=== PATIENT | male | born 1940 | race Caucasian/White ===

== ENCOUNTER 2018-01-02 13:27 | Emergency (ER) | payer MEDICARE, OTHER ==
[2018-01-02] MEDS ORDERED: cephALEXin 250 MG CAPSULE PO STA (15:03)
[2018-01-02] MEDS ORDERED: TETANUS/DIPHTHERIA/PERTUSSIS 0.5 ML SYRINGE IM ONE (15:03)
--- NOTE | 2018-01-02 15:05 | ED Physician Documentation ---
PD HPI LOWER EXT INJURY - Stated complaint Stated Complaint: NAIL VS RT FOOT - Chief complaint Chief Complaint: Wound - History obtained from History obtained from: Patient - History of Present Illness PD HPI LOW EXT INJURY LOCATION: Right, Foot Type of injury: Puncture wound Where injury occurred: Home Timing - onset: Today - Additional information Additional information: The patient is a 77-year-old male who stepped on a nail while tearing down an old shack today, penetrating the sole of his right foot through his sneaker. He denies any other injuries. The date of his last tetanus booster is unknown. He is status post right total knee arthroplasty and status post left total hip replacement. He does not currently have a local physician, having recently moved here from [place], [place]. Review of Systems Constitutional: denies: Fever Skin: reports: Other (puncture wound) Musculoskeletal: reports: Other (left foot puncture wound with nail) Neurologic: denies: Focal weakness, Numbness PD PAST MEDICAL HISTORY - Past Medical History Endocrine/Autoimmune: None - Present Medications Home Medications: Ambulatory Orders Medication Instructions Recorded Confirmed Cephalexin [Keflex] 500 mg PO TID #15 capsule 01/02/18 hydroCHLOROthiazide 01/02/18 [Hydrochlorothiazide] - Allergies Allergies/Adverse Reactions: Allergies Allergy/AdvReac Type Severity Reaction Status Date / Time No Known Drug Allergies Allergy Verified 01/02/18 15:14 PD ED PE NORMAL - Vitals Vital signs reviewed: Yes (Borderline hypertension) - General General: Alert and oriented X 3, Well developed/nourished - HEENT HEENT: Atraumatic - Respiratory Respiratory: No respiratory distress - Derm Derm: No rash - Extremities Extremities: No calf tenderness / cord, Other (Puncture wound to the plantar aspect of the right midfoot. There is no surrounding erythema. Distal neurovascular is intact.) Results - Vitals Vitals: Vital Signs - 24 hr 01/02/18 01/02/18 13:33 15:58 Temperature 36.6 C 36.8 C Heart Rate 68 64 Respiratory 16 16 Rate Blood Pressure 145/81 H 140/87 H O2 Saturation 96 99 Oxygen O2 Source Room air PD MEDICAL DECISION MAKING - ED course Complexity details: considered differential, d/w patient ED course: The patient's presentation is significant for plantar puncture wound in the right foot with a nail. His examination reveals puncture wound without complications. Considerations in this patient include total knee arthroplasty and total hip replacement. Treatment in the emergency department included administration of tetanus booster , and cephalexin 500 mg orally. The wound was cleaned and the superficial skin was unroofed allowing irrigation. He is being discharged with prescription for a short course of cephalexin. I discussed with him symptomatic treatment, as well as potentially worrisome signs or symptoms that should prompt reevaluation in the emergency department. - Sepsis Event Vital Signs: Vital Signs - 24 hr 01/02/18 01/02/18 13:33 15:58 Temperature 36.6 C 36.8 C Heart Rate 68 64 Respiratory 16 16 Rate Blood Pressure 145/81 H 140/87 H O2 Saturation 96 99 Oxygen O2 Source Room air Departure - Departure Disposition: 01 Home, Self Care Clinical Impression: Puncture wound of plantar aspect of foot Qualifiers: Encounter type: initial encounter Laterality: right Qualified Code(s): S91.331A - Puncture wound without foreign body, right foot, initial encounter Condition: Stable Instructions: ED Wound Puncture General Prescriptions: Cephalexin [Keflex] 500 mg PO TID #15 capsule Comments: Keep your right foot elevated as much the time as possible. Keep the wound clean. Take cephalexin 3 times daily as prescribed. Return to the emergency department if you develop any sign of infection, or otherwise worsening symptoms. Discharge Date/Time: 01/02/18 15:58
[2018-01-02 16:00] VITALS: BP 140/87
== END 2018-01-02 15:58 | disposition home or self-care (01) ==
LOC: ED 13:27
DX: S91.331A Puncture wound without foreign body, right foot, initial encounter (principal); W45.0XXA Nail entering through skin, initial encounter; Y92.009 Unspecified place in unspecified non-institutional (private) residence as the place of occurrence of the external cause; Z23 Encounter for immunization
CPT/HCPCS: 90471; 90715; 99283; A9270

== ENCOUNTER 2019-04-08 10:23 | Outpatient (CLI) | payer MEDICARE, OTHER ==
--- NOTE | 2019-04-09 09:32 | XRAY Report ---
Reason: CLAVICAL Procedure Date: 04/08/2019 Accession Number: [id number] / [id number] Procedure: XRS - Clavicle LT CPT Code: FULL RESULT: EXAM: LEFT CLAVICLE RADIOGRAPHY EXAM DATE: 04/08/2019 10:32 AM. CLINICAL HISTORY: Clavicle. Left clavicle is now protruding much more than the right at the left sternal clavicular joint. No known injury. Mild discomfort. COMPARISON: None. TECHNIQUE: 2 views. FINDINGS: Bones: Normal. No fracture or bone lesion. Joints: Mild to moderate acromioclavicular and mild glenohumeral joint degenerative disease. At the AC joint is normally aligned. The sternoclavicular joint is grossly normal. No definite malalignment although the right sternoclavicular joint is not well-seen and if comparison of the sternoclavicular joints alignment is indicated, bilateral sternoclavicular joint radiography would be recommended. Soft Tissues: Normal. No soft tissue swelling. IMPRESSION: 1. No acute abnormality is demonstrated. 2. 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 RADIA
== END 2019-04-08 10:24 | disposition home or self-care (01) ==
LOC: DI.S 10:23
PROVIDERS: ATTEND Nurse Practitioner Family
DX: M19.012 Primary osteoarthritis, left shoulder (principal)

== ENCOUNTER 2019-04-16 07:54 | Outpatient (CLI) | payer MEDICARE, OTHER ==
--- NOTE | 2019-04-16 18:20 | XRAY Report ---
Reason: STERNOCLAVICULAR JOINTS, SHOULDER BILAT Procedure Date: 04/16/2019 Accession Number: [id number] / [id number] Procedure: XRS - SC Joints CPT Code: FULL RESULT: EXAM: BILATERAL STERNOCLAVICULAR JOINT RADIOGRAPHY EXAM DATE: 04/16/2019 08:16 AM. CLINICAL HISTORY: Pain COMPARISON: None. TECHNIQUE: Frontal, oblique and lateral views of the sternoclavicular joints, 4 views total FINDINGS: No apparent misalignment. No evidence of sclerosis or hyperostotic change. No large lytic lesion identified at the medial clavicles or upper sternum. IMPRESSION: No significant abnormality identified at the sternoclavicular joints within limitations of plain radiography. RADIA
== END 2019-04-16 07:55 | disposition home or self-care (01) ==
LOC: DI.S 07:54
PROVIDERS: ATTEND Nurse Practitioner Family
DX: M25.511 Pain in right shoulder (principal); M25.512 Pain in left shoulder
CPT/HCPCS: 71130

== ENCOUNTER 2019-07-09 13:14 | Outpatient (CLI) | payer MEDICARE, OTHER ==
--- NOTE | 2019-07-12 09:52 | CT Report ---
Reason: AQUIRED DEFORMITY OF CLAVICLE Procedure Date: 07/09/2019 Accession Number: [id number] / [id number] Procedure: CT - CHEST WO CPT Code: Final Report FULL RESULT: EXAM: CT CHEST EXAM DATE: 07/09/2019 01:32 PM. CLINICAL HISTORY: AQUIRED DEFORMITY OF CLAVICLE. COMPARISONS: None. TECHNIQUE: Routine helical CT imaging was performed through the chest. IV contrast: None. Reconstructions: Coronal and sagittal. In accordance with CT protocol optimization, one or more of the following dose reduction techniques were utilized for this exam: automated exposure control, adjustment of mA and/or KV based on patient size, or use of iterative reconstructive technique. FINDINGS: Lungs/Pleura: Calcifying granuloma in the left lung base measuring up to 8 mm likely of no clinical significance. No focal consolidation, pleural effusion or suspicious pulmonary nodules or masses. Moderate emphysematous changes throughout both lungs. Mediastinum: Normal. No adenopathy or masses. The heart and great vessels are normal. Bones: Bony fusion of the left first rib and manubrium. No abnormality of the left clavicular head identified. No mass or lymphadenopathy. Visualized Abdomen: Multiple coarse and punctate calcifications in the spleen consistent with prior granulomatous infection. Other: None. IMPRESSION: There is bony fusion of the left first rib and manubrium. No abnormality noted of the left clavicular head. No masses. No lymphadenopathy. RADIA
== END 2019-07-09 13:15 | disposition home or self-care (01) ==
LOC: DI 13:14
PROVIDERS: ATTEND Registered Nurse
DX: M95.8 Other specified acquired deformities of musculoskeletal system (principal); Z87.891 Personal history of nicotine dependence
CPT/HCPCS: 71250

== ENCOUNTER 2020-03-01 13:57 | Outpatient (CLI) | payer MEDICARE, OTHER ==
--- NOTE | 2020-03-01 14:30 | XRAY Report ---
PROCEDURE: Lumbar Spine 2 View INDICATIONS: ANESTHESIA OF SKIN TECHNIQUE: 3 views of the lumbar spine were acquired. COMPARISON: None. FINDINGS: No fracture. Diffuse endplate sclerosis and spurring. Moderate narrowing of the L5-S1 disc space. Mil d narrowing of the remaining lumbar disc spaces. Trace retrolisthesis of L2 on L3. Facet arthropathy Soft tissues: Overlying bowel gas pattern is normal. No suspicious soft tissue calcifications. IMPRESSION: Multilevel lumbar spondylosis and facet arthropathy most pronounced at L5-S1. Reviewed by: Pedro Cano MD on 03/01/2020 2:29 PM PDT Approved by: Pedro Cano MD on 03/01/2020 2:29 PM PDT Station ID: [id number]
== END 2020-03-01 13:58 | disposition home or self-care (01) ==
LOC: DI.S 13:57
PROVIDERS: ATTEND Registered Nurse
DX: M47.817 Spondylosis without myelopathy or radiculopathy, lumbosacral region (principal); M47.816 Spondylosis without myelopathy or radiculopathy, lumbar region; M43.16 Spondylolisthesis, lumbar region
CPT/HCPCS: 72100

== ENCOUNTER 2020-03-09 10:46 | Outpatient (CLI) | payer MEDICARE, OTHER ==
--- NOTE | 2020-03-09 13:20 | XRAY Report ---
PROCEDURE: Cervical Spine 2 View INDICATIONS: ANESTHESIA OF SKIN TECHNIQUE: 2 view(s) of the cervical spine were acquired. COMPARISON: None. FINDINGS: Bones: No fractures or dislocations to the C7-T1 level. The lateral masses of C1 appear intact on t he odontoid view. No suspicious bony lesions. There is trace retrolisthesis of C3 on C4, C4 on C5, C5 on C6. Small partially bridging anterior osteophytes are present at C4-5, C5-6. Moderate disc spac e narrowing is present at C3-4 through C6-7. Multilevel uncovertebral arthropathy is present. Soft tissues: No prevertebral soft tissue swelling. IMPRESSION: Multilevel degenerative changes as above. As clinically indicated, MRI may be obtained f or additional evaluation. Reviewed by: Emely Robins MD on 03/09/2020 1:18 PM PDT Approved by: Emely Robins MD on 03/09/2020 1:18 PM PDT Station ID: [id number]
== END 2020-03-09 10:47 | disposition home or self-care (01) ==
LOC: DI.S 10:46
PROVIDERS: ATTEND Registered Nurse
DX: R20.0 Anesthesia of skin (principal); M50.31 Other cervical disc degeneration, high cervical region; M48.02 Spinal stenosis, cervical region
CPT/HCPCS: 72040

== ENCOUNTER 2021-07-16 13:27 | Outpatient (CLI) | payer MEDICARE, OTHER ==
--- NOTE | 2021-07-16 14:16 | XRAY Report ---
PROCEDURE: Hip w/Pelvis 2-3V RT INDICATIONS: PAIN IN RIGHT HIP JOINT TECHNIQUE: AP pelvis with lateral view(s) of the right hip(s). COMPARISON: Lumbar spine radiographs 03/01/2020. FINDINGS: Bones: No fractures or dislocations. No avascular necrosis of the right femoral head. There is right hip joint space narrowing and acetabular roof sclerosis. Question CAM deformity. The visualized port ions of the left hip arthroplasty are unremarkable. Mild heterotopic calcifications. Pelvic ring appe ars intact. No suspicious bony lesions. Soft tissues: The visualized bowel gas pattern is normal. No suspicious soft tissue calcifications. Vascular calcifications. Clips in the region of the right scrotum. IMPRESSION: Severe right hip DJD. Left hip arthroplasty. Reviewed by: Edson Suggs MD on 07/16/2021 2:15 PM PST Approved by: Edson Suggs MD on 07/16/2021 2:15 PM PST Station ID: [id number]
[2021-07-16 20:02] LABS: ALBUMIN 4.5 g/dL (3.2-5.5); ALBUMIN/GLOBULIN RATIO 1.7 (1.0-2.2); ALKALINE PHOSPHATASE 61 IU/L (42-121); ALT ALANINE AMINOTRANSFERASE 26 IU/L (10-60); AST ASPARTATE AMINOTRANSFERASE 25 IU/L (10-42); BILIRUBIN,TOTAL 0.7 mg/dL (0.2-1.0); BUN - BLOOD UREA NITROGEN 21 mg/dL (6-20); CALCIUM 8.9 mg/dL (8.5-10.3); CARBON DIOXIDE - CO2 31 mmol/L (21-32); CHLORIDE 98 mmol/L (101-111); CHOL/HDL RATIO 4.5 (<5.0); CHOLESTEROL 197 mg/dL; GFR - MDRD 72 (>89); GLUCOSE 127 mg/dL (70-100); HDL CHOLESTEROL 44 mg/dL; LDL CHOLESTEROL,CALCULATED 119 mg/dL; LDL/HDL RATIO 2.7 (<3.6); POTASSIUM 3.9 mmol/L (3.5-5.0); SODIUM 136 mmol/L (135-145); TOTAL PROTEIN 7.1 g/dL (6.7-8.2); TRIGLYCERIDES 168 mg/dL; VLDL CHOLESTEROL 34 mg/dL
== END 2021-07-16 13:28 | disposition home or self-care (01) ==
LOC: DI.S 13:27
PROVIDERS: ATTEND Nurse Practitioner Family
DX: M16.11 Unilateral primary osteoarthritis, right hip (principal); Z13.1 Encounter for screening for diabetes mellitus; E78.5 Hyperlipidemia, unspecified; Z96.642 Presence of left artificial hip joint
CPT/HCPCS: 36415; 80053; 80061; 83721

== ENCOUNTER 2021-10-20 09:01 | Outpatient (CLI) | payer MEDICARE, OTHER ==
[2021-10-20] MEDS ORDERED: ALBUTEROL 1 PUFF INH STA (12:24)
== END 2021-10-20 09:02 | disposition home or self-care (01) ==
LOC: RT 09:01
PROVIDERS: ATTEND Nurse Practitioner Family
DX: J44.9 Chronic obstructive pulmonary disease, unspecified (principal)
CPT/HCPCS: 94060; 94729

== ENCOUNTER 2023-09-04 07:55 | Outpatient (CLI) | payer MEDICARE, OTHER ==
[2023-09-04 14:39] LABS: BASOPHILS % (AUTO) 0.7 %; EOSINOPHILS # (AUTO) 0.1 10^3/uL (0.0-0.7); EOSINOPHILS % (AUTO) 1.5 %; HCT - HEMATOCRIT 42.4 % (42.0-52.0); LYMPHOCYTES % (AUTO) 21.1 %; MEAN CORPUSCULAR HEMOGLOBIN 32.9 pg (27.0-31.0); MEAN CORPUSCULAR VOLUME 99.5 fL (80.0-94.0); MEAN PLATELET VOLUME 9.5 fL (7.4-11.4); MONOCYTES # (AUTO) 0.5 10^3/uL (0.0-1.0); MONOCYTES % (AUTO) 10.4 %; NEUTROPHILS % (AUTO) 66.1 %; PLT - PLATELET COUNT 184 10^3/uL (130-450); RED BLOOD COUNT 4.26 10^6/uL (4.70-6.10); RED CELL DISTRIBUTION WIDTH 13.7 % (12.0-15.0); WHITE BLOOD COUNT 4.5 x10^3/uL (4.8-10.8)
== END 2023-09-04 07:56 | disposition home or self-care (01) ==
LOC: LAB.S 07:55
PROVIDERS: ATTEND Nurse Practitioner Family
DX: R20.9 Unspecified disturbances of skin sensation (principal)
CPT/HCPCS: 36415; 85025